=== PATIENT | male | born 1975 | race Caucasian/White ===

== ENCOUNTER 2025-06-01 08:17 | Emergency (ER) | payer OTHER ==
[~2025-06-01] VITALS: Ht 182.9 cm; Wt 111.4 kg
[2025-06-01 08:31] VITALS: TEMP 97.6
[2025-06-01 11:10] VITALS: BP 170/96; O2SAT 97
== END 2025-06-01 11:23 | disposition home or self-care (01) ==
LOC: M ED 08:17
DX: S82.401A Unspecified fracture of shaft of right fibula, initial encounter for closed fracture (principal); W19.XXXA Unspecified fall, initial encounter; Y92.410 Unspecified street and highway as the place of occurrence of the external cause; Y93.51 Activity, roller skating (inline) and skateboarding; Y99.9 Unspecified external cause status; I10 Essential (primary) hypertension; Z88.0 Allergy status to penicillin